=== PATIENT | female | born 1975 | race Caucasian/White ===

== ENCOUNTER → 2021-03-03 | Outpatient (CLI) | payer BC ==
[~2021-03-03] MED LIST: ALDACTONE; AVANDIA; DOXYCYCLINE PO; NYSTATIN 100MU/ML; TYLENOL 500MG500 MG PO
== END ==
LOC: COL.RAD 12:52
DX: M51.36 Other intervertebral disc degeneration, lumbar region (principal)

== ENCOUNTER → 2021-03-13 | Outpatient (CLI) | payer BC | LOC: COL.RAD 13:35 | DX: M46.1 Sacroiliitis, not elsewhere classified (principal) | CPT/HCPCS: G0260; J3301 ==

== ENCOUNTER → 2021-07-30 | Outpatient (CLI) | payer BC ==
[~2021-07-30] VITALS: Ht 167.6 cm; Wt 99.0 kg
[~2021-07-30] MED LIST changes: +ALDACTONE 25MG25 M1 PO; +APRI 0.15 MG-0.1 TAB PO; +GLUCOPHAGE500 MG/TAB PO; +LEXAPRO20 MG PO; +NORCO 325 MG-51 TAB PO; +ZANAFLEX 4MG TAB4 MG PO; +ZESTRIL 5MG5 MG PO
[2021-07-30 12:48] VITALS: BP 123/79; PULSE 78; TEMP 97.9
[2021-07-30 13:30] VITALS: BP 139/84; PULSE 69
--- NOTE | 2021-07-30 13:43 | NUR ---
1325 - Patient ambulatory to Radiology holding post procedure. 1343 - VSS. Patient denies pain or numbness. Discharged home accompanied by mother. Ambulated to exit; wheelchair refused.
== END ==
LOC: COL.RAD 07-23 12:00
DX: M51.36 Other intervertebral disc degeneration, lumbar region (principal)
CPT/HCPCS: J3301

== ENCOUNTER → 2021-08-20 | Outpatient (CLI) | payer BC ==
[~2021-08-20] VITALS: Ht 167.6 cm; Wt 97.3 kg
[2021-08-20 11:59] VITALS: BP 135/78; PULSE 91; TEMP 97.8
[2021-08-20 13:00] VITALS: BP 147/87; PULSE 89
== END ==
LOC: COL.RAD 08-17 13:00
DX: M51.36 Other intervertebral disc degeneration, lumbar region (principal); M48.061 Spinal stenosis, lumbar region without neurogenic claudication
CPT/HCPCS: J3301

== ENCOUNTER → 2023-06-21 | Outpatient (CLI) | payer BC | LOC: MC.RAD 11:02 | DX: Z12.31 Encounter for screening mammogram for malignant neoplasm of breast (principal) ==

== ENCOUNTER → 2024-01-12 | Outpatient (CLI) | payer BC | LOC: COL.CARD 10:00 | DX: R55 Syncope and collapse (principal) ==